=== PATIENT | male | born 1955 | race Caucasian/White ===

== ENCOUNTER 2018-05-04 13:12 | Emergency (ER) | payer OTHER ==
[~2018-05-04] VITALS: Ht 167.6 cm; Wt 86.2 kg
[~2018-05-04 13:12] MED LIST: ATORVASTATIN CA10 MG; COZAAR25 MG; DEXAMETHAS0.5 MG/5 M; LEVAQUIN500 MG PO; TAMS0.4C PO; TOPROL XL25 M1; ZITHROMAX200 MG
== END 2018-05-05 00:11 | disposition home or self-care (01) ==
LOC: ER 13:12
DX: N39.0 Urinary tract infection, site not specified (principal); K57.90 Diverticulosis of intestine, part unspecified, without perforation or abscess without bleeding; M54.5 Low back pain